=== PATIENT | female | born 1975 | race Caucasian/White ===

== ENCOUNTER → 2024-12-07 07:24 | Outpatient (CLI) | payer OTHER ==
[2024-12-07 08:55] LABS: HEMATOCRIT 29.9 % (36.0-45.00); MEAN CORPUSCULAR HGB CONC 31.6 g/dl (32.0-36.0); PLATELET COUNT 468 K/uL (150-450); RED BLOOD COUNT 4.34 M/uL (4.00-6.00); RED CELL DISTRIBUTION WIDTH 19.4 % (11.5-14.5)
[2024-12-07 08:56] LABS: HEMOGLOBIN 9.4 g/dL (12.0-15.00); MEAN CORPUSCULAR HEMOGLOBIN 21.6 pg (27.00-32.0)
[2024-12-07 09:26] LABS: INR 0.94; PARTIAL THROMBOPLASTIN TIME 24.8 SECONDS (22.0-34.0)
[2024-12-07 09:27] LABS: PROTHROMBIN TIME 10.3 SECONDS (9.0-11.5)
[2024-12-07 09:32] LABS: COL EPI 103 SECONDS (82-175)
[2024-12-07 09:39] LABS: % SATURACION 3.7 % (15-50); ALBUMIN 3.1 gm/dL (3.4-5.0); BILIRUBIN TOTAL 0.23 mg/dL (0.3-1.2); CALCIUM 8.7 mg/dL (8.5-10.1); CREATININE SERUM 0.52 mg/dL (0.55-1.02); GFR 125.33; GLOBULINA 4.3 G/DL (2.4-3.5); POTASSIUM 4.59 mEq/L (3.5-5.1); TOTAL PROTEIN 7.4 gm/dL (6.4-8.2)
[2024-12-07 09:40] LABS: FERRITIN 2.9 NG/ML (8-252)
[2024-12-07 11:05] LABS: FOLIC ACID 5.18 ng/ml (4.78-20); VITAMIN D3 25 HYDROXY 10.27 ng/ml (30-120)
== END | disposition home or self-care (01) ==
LOC: LAB 07:24
PROVIDERS: ATTEND Internal Medicine Hematology & Oncology
DX: D50.8 Other iron deficiency anemias (principal); D25.1 Intramural leiomyoma of uterus; E03.8 Other specified hypothyroidism; E78.2 Mixed hyperlipidemia; I10 Essential (primary) hypertension; R74.02 Elevation of levels of lactic acid dehydrogenase [LDH]; K76.89 Other specified diseases of liver; E55.9 Vitamin D deficiency, unspecified; Z13.29 Encounter for screening for other suspected endocrine disorder; D68.8 Other specified coagulation defects; C56.9 Malignant neoplasm of unspecified ovary; R97.8 Other abnormal tumor markers; R97.0 Elevated carcinoembryonic antigen [CEA]

== ENCOUNTER 2025-03-15 09:27 | Outpatient (CLI) | payer OTHER ==
[2025-03-15 10:54] LABS: BASO % 0.9 % (0.1-1.2); EOS # 0.10 (0.04-0.54); EOS % 1.9 % (0.7-7.0); LYMPH # 1.29 (1.18-3.74); LYMPH % 24.3 % (19.3-53.1); MEAN PLATELET VOLUME 10.00 fl (9.4-12.4); MONO # 0.50 (0.24-0.82); MONO % 9.4 % (4.7-12.5); NEUT # 3.36 (1.56-6.13); NEUT % 63.3 % (34.0-71.1)
[2025-03-15 11:19] LABS: RED CELL DISTRIBUTION WIDTH 25.7 % (11.6-14.4)
[2025-03-15 11:24] LABS: ALT/SGPT 20.0 U/L (12-78); AST/SGOT 11.0 U/L (15-37); BILIRUBIN TOTAL 0.34 mg/dL (0.3-1.2); BUN CREA RATIO 25.0 (7.0-25.0); CREATININE SERUM 0.53 mg/dL (0.55-1.02); FE 31.0 ug/dl (50-170); GFR 122.61; GLOBULINA 3.5 G/DL (2.4-3.5); GLUCOSE FASTING 82.0 mg/dL (65-100); LDH 148.0 U/L (84-246); OSMOLALITY SERUM 279.0 MOSM/KG (275-295)
[2025-03-15 12:56] LABS: FOLIC ACID 12.67 ng/ml (4.78-20)
== END 2025-03-15 09:29 | disposition home or self-care (01) ==
LOC: LAB 09:27
PROVIDERS: ATTEND Internal Medicine Hematology & Oncology
DX: D50.8 Other iron deficiency anemias (principal); D25.1 Intramural leiomyoma of uterus; E03.8 Other specified hypothyroidism; E78.2 Mixed hyperlipidemia; I10 Essential (primary) hypertension; R74.02 Elevation of levels of lactic acid dehydrogenase [LDH]; K76.89 Other specified diseases of liver; D51.8 Other vitamin B12 deficiency anemias; D68.00 Von Willebrand disease, unspecified; D68.8 Other specified coagulation defects

== ENCOUNTER 2025-04-08 05:57 | Day surgery (SDC) | payer OTHER ==
[2025-04-06 09:14] LABS: BASO % 0.9 % (0.1-1.2); EOS # 0.14 (0.04-0.54); EOS % 2.4 % (0.7-7.0); LYMPH # 1.69 (1.18-3.74); LYMPH % 28.8 % (19.3-53.1); MEAN PLATELET VOLUME 9.90 fl (9.4-12.4); MONO # 0.59 (0.24-0.82); MONO % 10.1 % (4.7-12.5); NEUT # 3.39 (1.56-6.13); NEUT % 57.6 % (34.0-71.1); RED CELL DISTRIBUTION WIDTH 21.7 % (11.6-14.4)
[2025-04-06 09:29] LABS: URINE APPEARANCE Clear; URINE BILIRRUBIN Negative (NEGATIVE); URINE BLOOD Negative; URINE COLOR Yellow; URINE GLUCOSE Negative (NEGATIVE); URINE KETONE Trace (NEGATIVE); URINE LEUKOCYTE Negative; URINE NITRATE Negative; URINE PROTEIN Negative (NEGATIVE); URINE UROBILINOGEN 0.2 E.U./dl
[2025-04-06 09:30] VITALS: BP 102/72
[2025-04-06 09:30] LABS: URINE BACTERIA 131.9 uL (0.0-1933); URINE EPITHELIAL CELLS 5.9 uL (0.0-38.8); URINE RBC 7.6 uL (0.0-20.8); URINE WBC 5.9 uL (0.0-23.2)
[2025-04-06 09:35] LABS: URINE CAST 0.29 uL (0.0-1.40)
[2025-04-06 09:54] LABS: INR 1.0
[2025-04-06 10:02] LABS: ALT/SGPT 20.0 U/L (12-78); AST/SGOT 11.0 U/L (15-37); BILIRUBIN TOTAL 0.42 mg/dL (0.3-1.2); BUN CREA RATIO 22.0 (7.0-25.0); CREATININE SERUM 0.5 mg/dL (0.55-1.02); GFR 131.13; GLOBULINA 3.8 G/DL (2.4-3.5); GLUCOSE FASTING 84.0 mg/dL (65-100); OSMOLALITY SERUM 278.0 MOSM/KG (275-295)
[~2025-04-08] VITALS: Ht 162.6 cm; Wt 89.8 kg
[2025-04-08] MEDS ORDERED: CEFAZOLIN SODIUM 1,000 MG VIAL ONE (08:04)
[2025-04-08] MEDS ORDERED: POVIDONE-IODINE 118 ML BOTT TOP ONE (10:00)
[2025-04-08] MEDS ORDERED: DOXYCYCLINE HY100 M2 PO (10:45)
[2025-04-08] MEDS ORDERED: IBU600 MG PO (10:45)
== END 2025-04-08 17:10 | disposition home or self-care (01) ==
LOC: CIR.AMB 05:57
PROVIDERS: ATTEND Obstetrics & Gynecology
DX: D25.0 Submucous leiomyoma of uterus (principal); N84.0 Polyp of corpus uteri; N84.1 Polyp of cervix uteri